=== PATIENT | male | born 1990 | race Caucasian/White ===

== ENCOUNTER 2022-01-26 05:15 | Emergency (ER) | payer BC ==
[~2022-01-26 05:15] MED LIST: CLEOCIN HCL300 MG PO; IBUPROFEN600 MG PO; Viscous lidocaine 2% TOP
[2022-01-26 06:47] LABS: HEMOGLOBIN 16.3 gm/dl (14.0-17.5); RED BLOOD COUNT 5.44 M/UL (4.20-5.50); WHITE BLOOD COUNT 9.7 K/UL (4.5-11.0)
[2022-01-26 07:06] LABS: BUN/CREATININE RATIO 12 (0-10)
[2022-01-26] MEDS ORDERED: FLOMAX 0.4 MG0.4 MG PO (08:50)
[2022-01-26] MEDS ORDERED: ZOFRAN 4 MG TAB4 MG PO (08:50)
[2022-01-26] MEDS ORDERED: TORADOL 10 MG T10 MG PO (08:50)
== END 2022-01-26 09:24 | disposition home or self-care (01) ==
LOC: ER1 05:15
PROVIDERS: Physician Assistant
DX: N13.2 Hydronephrosis with renal and ureteral calculous obstruction (principal); F17.210 Nicotine dependence, cigarettes, uncomplicated
CPT/HCPCS: 80053; 81001; 83690; 85025; 96374; 96375; 99284; J1885; J2270; J2550